=== PATIENT | male | born 1995 | race American Indian/Alaskan Native ===

== ENCOUNTER 2019-10-12 04:13 | Emergency (ER) | payer SELFPAY ==
[2019-10-12 04:24] VITALS: BP 137/86
== END 2019-10-12 05:00 | disposition left against medical advice (07) ==
LOC: ED 04:13
DX: F10.129 Alcohol abuse with intoxication, unspecified (principal); Z53.21 Procedure and treatment not carried out due to patient leaving prior to being seen by health care provider

== ENCOUNTER 2021-10-09 02:27 | Emergency (ER) | payer SELFPAY ==
[2021-10-09] MEDS ORDERED: diphenhydrAMINE 25 MG CAP PO ONE (03:47)
[2021-10-09] MEDS ORDERED: FAMOTIDINE 20 MG TAB PO ONE (03:47)
[2021-10-09] MEDS ORDERED: predniSONE 20 MG TAB PO ONE (03:47)
--- NOTE | 2021-10-09 04:56 | Emergency Department Report ---
HPI - General Chief Complaint: Allergic Reaction Time Seen by Provider: 10/09/21 03:46 - HPI HPI: Patient 26-year-old male who presents for allergic reaction and rash to face and trunk. Secondary complaint of paronychia to right middle finger. There is been no fevers or chills no nausea no vomiting no wheezing no shortness of breath. States rash started to face 2 days ago [place] is now with itching and raised smooth block. There is no noted drainage. Symptoms are relieved by nothing tried. ED Past Medical Hx - Past Medical History Previous Medical History?: No - Surgical History Past Surgical History?: No - Social History Smoking Status: Unknown if ever smoked Substance Use Type: None - Medications Home Medications: Home Medications Medication Instructions Recorded Confirmed Last Taken Type Famotidine [Pepcid] 20 mg PO BID 7 Days #14 tablet 10/09/21 Unknown Rx cephALEXin [Keflex] 500 mg PO Q8HR 7 Days #21 cap 10/09/21 Unknown Rx diphenhydrAMINE [Benadryl CAP] 25 mg PO Q8HR PRN #21 capsule 10/09/21 Unknown Rx predniSONE [Deltasone] 20 mg PO QDAY #5 tab 10/09/21 Unknown Rx ED Review of Systems ROS: Stated complaint: SWELLING OF FACE AND HAND Other details as noted in HPI Constitutional: denies: chills, fever Eyes: denies: eye pain, eye discharge, vision change ENT: denies: ear pain, throat pain Respiratory: denies: cough, shortness of breath, wheezing Cardiovascular: denies: chest pain, palpitations Endocrine: no symptoms reported Gastrointestinal: denies: abdominal pain, nausea, diarrhea Genitourinary: denies: urgency, dysuria Musculoskeletal: other (Right middle finger and distal tip pain and erythema). denies: back pain, joint swelling, arthralgia Skin: rash (Facial multiple bullae smooth raised no drainage no erythema no fever. Right middle finger pain and swelling to the distal tip) Neurological: denies: headache, weakness, paresthesias Psychiatric: denies: anxiety, depression Hematological/Lymphatic: denies: easy bleeding, easy bruising Physical Exam - Physical Exam Vital Signs: Vital Signs 10/09/21 02:30 Temperature 98.1 F Pulse Rate 78 Respiratory 18 Rate Blood Pressure 148/70 O2 Sat by Pulse 98 Oximetry General: Rash facial neck, face and hip patient ANO x3 appears well well-hydrated well- nourished with no respiratory distress there is no stridor lung sounds are clear throughout no wheezing neck is supple range of motion is intact heart sounds S1-S2 no rub gallop or murmur noted. Abdomen soft nontender. Patient with no acute distress. Erythema right distal little finger. Pain to touch. ED Course Vital Signs 10/09/21 02:30 Temperature 98.1 F Pulse Rate 78 Respiratory 18 Rate Blood Pressure 148/70 O2 Sat by Pulse 98 Oximetry - I & D Right Distal Finger Type of Procedure: Simple Site: Right distal middle finger lateral paronychia Blade Size: 11 I & D Procedure: betadine prep Progress: Anesthesia with 1% lidocaine via digital block anesthesia is achieved. Site cleaned with Betadine solution. Incision with 811 blade x1 to the nailbed moderate purulent output. Nailbed probed with Q-tip swab, wound irrigated with 10 cc sterile saline, all bleeding is controlled, sterile dressing is applied. Given aftercare instructions patient verbalized understanding of same. Including follow-up with primary care doctor in 2 days for wound check, soap and water every day. Patient tolerated procedure with minimal distress. ED Medical Decision Making - Medical Decision Making Diagnoses 1 allergic reaction symptoms are resolved, diagnosis 2 paronychia right middle finger tip see procedure note for I&D. All bleeding is controlled sterile dressings intact patient given aftercare instructions including follow- up with PCP in 2 days for wound check. Follow-up as needed. Patient will be DC'd to home with prescriptions. Tetanus is up-to-date, will be DC'd with Keflex. NSAIDs as needed for pain. Patient DC at this time iin stable condition, patient verbalized agreement and understanding with discharge plan. Critical care attestation.: If time is entered above; I have spent that time in minutes in the direct care of this critically ill patient, excluding procedure time. ED Disposition Clinical Impression: Paronychia of right middle finger Disposition: 01 HOME / SELF CARE / HOMELESS Is pt being admited?: No Does the pt Need Aspirin: No Condition: Stable Instructions: Paronychia, [id number], Allergies, Adult Additional Instructions: Take medications as prescribed. Follow-up with your doctor in 2 days for wound check. Return to emergency should symptoms worsen. Prescriptions: diphenhydrAMINE [Benadryl CAP] 25 mg PO Q8HR PRN #21 capsule PRN Reason: allergies predniSONE [Deltasone] 20 mg PO QDAY #5 tab cephALEXin [Keflex] 500 mg PO Q8HR 7 Days #21 cap Famotidine [Pepcid] 20 mg PO BID 7 Days #14 tablet Referrals: ELIZABETH OLIVAS MD [Staff Physician] - 3-5 Days Forms: Work/School Release Form(ED) Time of Disposition: 06:15
[2021-10-09] MEDS ORDERED: LIDOCAINE-MPF (1%) 10 MG/1 ML VIAL 5 ML INFILTRATI ONE (05:00)
[2021-10-09] MEDS ORDERED: traMADol 50 MG TAB PO ONE (05:00)
--- NOTE | 2021-10-09 06:18 | Emergency Department Report ---
ED General Adult HPI - General Chief complaint: Allergic Reaction Stated complaint: SWELLING OF FACE AND HAND Time Seen by Provider: 10/09/21 03:46 Source: EMS Mode of arrival: Stretcher Limitations: No Limitations - History of Present Illness Severity scale (0 -10): 2 - Related Data Previous Rx's Medication Instructions Recorded Last Taken Type Famotidine [Pepcid] 20 mg PO BID 7 Days #14 tablet 10/09/21 Unknown Rx cephALEXin [Keflex] 500 mg PO Q8HR 7 Days #21 cap 10/09/21 Unknown Rx diphenhydrAMINE [Benadryl CAP] 25 mg PO Q8HR PRN #21 capsule 10/09/21 Unknown Rx predniSONE [Deltasone] 20 mg PO QDAY #5 tab 10/09/21 Unknown Rx Allergies Allergy/AdvReac Type Severity Reaction Status Date / Time No Known Allergies Allergy Verified 10/09/21 02:30 ED Review of Systems ROS: Stated complaint: SWELLING OF FACE AND HAND Other details as noted in HPI Constitutional: denies: chills, fever Eyes: denies: eye pain, eye discharge, vision change ENT: denies: ear pain, throat pain Respiratory: denies: cough, shortness of breath, wheezing Cardiovascular: denies: chest pain, palpitations Endocrine: no symptoms reported Gastrointestinal: denies: abdominal pain, nausea, diarrhea Genitourinary: denies: urgency, dysuria Musculoskeletal: other (Right middle finger and distal tip pain and erythema). denies: back pain, joint swelling, arthralgia Skin: rash (Facial multiple bullae smooth raised no drainage no erythema no fever. Right middle finger pain and swelling to the distal tip) Neurological: denies: headache, weakness, paresthesias Psychiatric: denies: anxiety, depression Hematological/Lymphatic: denies: easy bleeding, easy bruising ED Past Medical Hx - Past Medical History Previous Medical History?: No - Surgical History Past Surgical History?: No - Social History Smoking Status: Unknown if ever smoked Substance Use Type: None - Medications Home Medications: Home Medications Medication Instructions Recorded Confirmed Last Taken Type Famotidine [Pepcid] 20 mg PO BID 7 Days #14 tablet 10/09/21 Unknown Rx cephALEXin [Keflex] 500 mg PO Q8HR 7 Days #21 cap 10/09/21 Unknown Rx diphenhydrAMINE [Benadryl CAP] 25 mg PO Q8HR PRN #21 capsule 10/09/21 Unknown Rx predniSONE [Deltasone] 20 mg PO QDAY #5 tab 10/09/21 Unknown Rx ED Physical Exam - General Limitations: No Limitations General appearance: alert, in no apparent distress - Head Head exam: Present: normocephalic, normal inspection - Eye Eye exam: Present: normal appearance, EOMI Pupils: Present: normal accommodation - ENT ENT exam: Present: mucous membranes moist - Neck Neck exam: Present: normal inspection. Absent: tenderness - Respiratory Respiratory exam: Present: normal lung sounds bilaterally. Absent: respiratory distress, wheezes, stridor - Cardiovascular Cardiovascular Exam: Present: regular rate, normal rhythm, normal heart sounds. Absent: systolic murmur, diastolic murmur, rubs, gallop - GI/Abdominal GI/Abdominal exam: Present: soft. Absent: distended, tenderness - Rectal Rectal exam: Present: deferred - Extremities Exam Extremities exam: Present: full ROM, tenderness - Expanded Upper Extremity Exam Right Hand Wrist exam: Present: tenderness, swelling, erythema (right distal finger tip ) Neuro motor exam: Present: wrist extension intact, thumb opposition intact, thumb IP flexion intact, thumb adduction intact, fingers 2-5 abduction intact Neurosensory exam: Present: radial nerve intact - Back Exam Back exam: Present: normal inspection, full ROM. Absent: tenderness - Neurological Exam Neurological exam: Present: alert, oriented X3, reflexes normal. Absent: motor sensory deficit - Expanded Neurological Exam Expanded Patient oriented to: Present: person, place, time Speech: Present: fluid speech Motor strength exam: RUE: 5, LUE: 5 Best Eye Response (Alba): (4) open spontaneously Best Motor Response (Alba): (6) obeys commands Best Verbal Response (Alba): (5) oriented Arlette Total: 15 - Psychiatric Psychiatric exam: Present: normal affect, normal mood - Skin Skin exam: Present: warm, dry, intact, normal color. Absent: rash ED Course Vital Signs 10/09/21 02:30 Temperature 98.1 F Pulse Rate 78 Respiratory 18 Rate Blood Pressure 148/70 O2 Sat by Pulse 98 Oximetry Critical care attestation.: If time is entered above; I have spent that time in minutes in the direct care of this critically ill patient, excluding procedure time. ED Disposition Disposition: HOME / SELF CARE / HOMELESS Condition: Stable Instructions: Allergies, Adult, Paronychia, [id number] Additional Instructions: Take medications as prescribed. Follow-up with your doctor in 2 days for wound check. Return to emergency should symptoms worsen. Prescriptions: diphenhydrAMINE [Benadryl CAP] 25 mg PO Q8HR PRN #21 capsule PRN Reason: allergies predniSONE [Deltasone] 20 mg PO QDAY #5 tab cephALEXin [Keflex] 500 mg PO Q8HR 7 Days #21 cap Famotidine [Pepcid] 20 mg PO BID 7 Days #14 tablet Referrals: ELIZABETH OLIVAS MD [Staff Physician] - 3-5 Days Forms: Work/School Release Form(ED)
[2021-10-09 07:57] VITALS: BP 128/82
== END 2021-10-09 07:57 | disposition home or self-care (01) ==
LOC: ED 02:27
DX: L03.011 Cellulitis of right finger (principal)
CPT/HCPCS: 10060; 99283; J3490; J7512